=== PATIENT | female | born 1990 | race Caucasian/White ===

== ENCOUNTER 2020-08-02 02:38 | Emergency (ER) | payer SELFPAY ==
[2020-08-02 02:40] VITALS: PULSE 78; RESP 20; TEMP 35.8; O2SAT 96
--- NOTE | 2020-08-02 02:40 | ED.FEMALEGU ---
HPI - Female Genitourinary General Chief complaint: Urogenital-Female Stated complaint: possible uti Time Seen by Provider: 08/02/20 02:40 History of Present Illness HPI Narrative: dysuria and urinary frequency for the past few days. Tried azo with inadequate relief. Overnight tonight it became unbearable. Similar to past UTis, but worse. No fever, flank pain, nausea, vomiting, discharge. Related Data Allergies Allergy/AdvReac Type Severity Reaction Status Date / Time No Known Allergies Allergy Unverified 12/26/13 13:55 Review of Systems Review of Systems: All systems reviewed & are unremarkable except as noted in HPI and below Cardiovascular: Cardiovascular: Denies chest pain Respiratory: Respiratory: Denies dyspnea Gastrointestinal: Gastrointestinal: Denies abdominal pain, Denies nausea and Denies vomiting Genitourinary: Genitourinary: Denies abnormal vaginal bleeding, Denies hematuria, Reports nocturia, Reports dysuria, Denies flank pain, Denies urinary incontinence and Denies vaginal discharge Exam Const: General: healthy appearing, no acute distress and alert Orientation/consciousness: patient oriented x3 HENMT: Head: normal to inspection Resp: Effort & Inspection: normal respiratory effort Auscultation: clear to auscultation bilaterally, no rales, no rhonchi and no wheezes Cardio: Jugular venous distension: no JVD Rate: regular rate Rhythm: regular rhythm Heart sounds: no murmurs GI: Inspection: non-distended GI Palp: Yes Soft to palpation and Yes Tenderness to palpation present (GI) (mild suprapubic) Skin: General skin exam: normal color Neuro: General: patient oriented x3 and moves all extremities Speech: normal speech Gait exam (Neuro): Normal gait present Extrem: General: no edema Psych: Appearance: well kempt Affect: normal affect Course Vital Signs Vital signs: Vital Signs Temperature 35.8 C L 08/02/20 02:40 Pulse Rate 78 08/02/20 02:40 Respiratory Rate 20 08/02/20 02:40 Pulse Oximetry 96 08/02/20 02:40 Temperature 35.8 C L 08/02/20 02:40 Pulse Rate 72 08/02/20 04:54 Respiratory Rate 16 08/02/20 04:54 Pulse Oximetry 99 08/02/20 04:54 MDM - Female Genitourinary MDM Narrative Medical decision making narrative: UA consistent with infection Medical Records Attestation: I reviewed the patient's medical records. Lab Data Attestation: I reviewed the patient's lab results. Labs: Lab Results 08/02/20 Range/Units 02:43 Urine Color Meg (Yellow) Urine Appearance Cloudy H (Clear) Urine pH 6.0 (5.0-9.0) Ur Specific [place] 1.013 (1.001-1.035) Urine Protein 2+ H (Negative) mg/dL Urine Glucose (UA) Negative (Negative) mg/dL Urine Ketones Negative (Negative) mg/dL Ur Blood (Man) 2+ H (Negative) Urine Nitrate Positive H (Negative) Urine Bilirubin Negative (Negative) Urine Urobilinogen 4.0 H (<2.0) mg/dL Leukocyte Esterase Rfl Negative (Negative) [place]/UL Urine RBC >75 H (0-2) /hpf Urine WBC >75 H /hpf Ur Squamous Epith Cells Few (Few) /hpf Urine Bacteria Trace /hpf UCG Bedside Result Negative Reference Range: Negative Discharge Plan Discharge Clinical Impression: Urinary tract infection Patient Disposition: Home, Self-Care Condition: Stable Instructions: Antibiotic Form, Urinary Tract Infection in Women (ED) Prescriptions: New nitrofurantoin monohyd/m-cryst [Macrobid] 100 mg capsule 100 mg PO Q12H 5 Days Qty: 10 RF: 0 Follow-up/Referrals: Vida,Alexander Piedra MD [Primary Care Provider] -
[2020-08-02 03:07] LABS: Add Urine Microscopic? YES; Appearance Urine Cloudy (Clear); Bacteria Urine Trace /hpf; Bilirubin Urine Negative (Negative); Blood Urine 2+ (Negative); Color Urine Amber (Yellow); Glucose Urine UA Negative (Negative); Ketones Urine Negative (Negative); Leukocyte Esterase Ur Negative LEU/UL (Negative); Nitrate Urine Positive (Negative); Protein Urine 2+ mg/dL (Negative); RBC Urine >75 /hpf (0-2); Specific Grav Ur 1.013 (1.001-1.035); Squamous Epithelial Cell Urine Few /hpf (Few); WBC Urine >75 /hpf
[2020-08-02] MEDS: NITROFURANTOIN MONOHYD MACROCR 100 MG CAP PO (03:36)
[2020-08-02 04:54] VITALS: PULSE 72; RESP 16; O2SAT 99
== END 2020-08-02 05:02 | disposition home or self-care (01) ==
PROVIDERS: Emergency Provider Emergency Medicine; PCP Family Medicine
DX: N39.0 Urinary tract infection, site not specified (principal)
CPT/HCPCS: 81001; 81025; 87077; 87086; 87088; 87186; 99283; A9270

== ENCOUNTER 2021-07-16 10:42 | Outpatient (CLI) | payer BC, SELFPAY ==
--- NOTE | ~2021-07-16 | US_ITS ---
EXAMINATION: US OB <=14 wk fetus w TV DATE: 07/16/2021 11:33 INDICATION: Threatened . TECHNIQUE: Real-time transabdominal pelvic ultrasound was performed. COMPARISON: None. FINDINGS: The uterus measures 11.4 x 8.3 x 5.8 cm. There is an intrauterine gestational sac. A yolk sac is iden tified. The crown rump length measures 3.7 cm, which correlates with an estimated gestational age of 10 weeks and 4 day(s) (+/-) 1 week(s) and 0 day(s). heart motion is identified measuring 157 beats per minute (bpm) by M-mode Doppler. There is an 11 mm hypoechoic subchorionic mass. The ri ght ovary measures 1.9 x 1.8 x 1.8 cm. The left ovary measures 2.6 x 2.2 x 1.1 cm. There is no free f luid in the pelvis. IMPRESSION: 1. Single living intrauterine gestation with estimated date of delivery of 02/07/2022. 2. 11 mm hypoechoic subchorionic mass, which may be a small hematoma or fibroid. Reviewed, dictated and finalized at location A. IMPRESSION: 1. Single living intrauterine gestation with estimated date of delivery of 02/07/2022. 2. 11 mm hypoechoic subchorionic mass, which may be a small hematoma or fibroid .
== END 2021-07-16 10:43 | disposition home or self-care (01) ==
LOC: ANHIMG 10:42
PROVIDERS: PCP Family Medicine; Visit Provider Obstetrics & Gynecology
DX: O20.0 Threatened abortion (principal); Z3A.00 Weeks of gestation of pregnancy not specified
CPT/HCPCS: 76801; 76817

== ENCOUNTER 2021-12-31 19:25 | Observation (INO) | payer BC, SELFPAY ==
[2021-12-31 19:55] VITALS: BP 121/69; PULSE 107
[2021-12-31 20:00] VITALS: BP 118/73; PULSE 114
[2021-12-31 20:21] LABS: Appearance Urine Cloudy (Clear); Bilirubin Urine Negative (Negative); Blood Urine Negative (Negative); Glucose Urine UA Negative (Negative); Ketones Urine 2+ mg/dL (Negative); Leukocyte Esterase Ur Negative LEU/UL (Negative); Nitrate Urine Negative (Negative); Protein Urine Trace mg/dL (Negative); Specific Grav Ur >= 1.030 (1.001-1.035); Urobilinogen Urine 0.2 mg/dL (<2.0)
[2021-12-31 20:31] VITALS: BP 127/72; PULSE 99
[2021-12-31 20:32] LABS: Bacteria Urine Trace /hpf; Mucus Urine Rare /lpf; Squamous Epithelial Cell Urine Many /hpf (Few)
[2021-12-31 20:35] LABS: Add Urine Microscopic? YES; Color Urine Light Yellow (Yellow)
[2021-12-31] MEDS: ONDANSETRON HCL ODT 4 MG TABLET PO (21:11)
[2021-12-31] MEDS: CYCLOBENZAPRINE HCL 10 MG TABLET PO (21:11)
--- NOTE | 2021-12-31 23:32 | OBADM ---
This patient, Leanna Camargo, admitted to the OB room OB Post 116 for observation. Patient/family oriented to hospital policies and general routines including ID bracelet, bed and alarms, visiting hours, pain management, procedures, bathroom and other care routines, personal items, smoking policy, room service/diet, and visiting hours. Patient/Family are encouraged to report perceived risks to care and to ask questions if they do not understand what they are told or what they should do.
--- NOTE | 2022-01-09 09:23 | PM.OBTRLD ---
OB - Triage/Final Diagnosis Visit Information Reason for evaluation: threatened labor Comments/Additional reasons for admission: I have assessed the risk for this patient, Leanna Camargo, and determined that she would benefit from observation care. Evaluation Laboratory results: Laboratory Tests 12/31/21 20:02 Urine Color Light yellow Urine Appearance Cloudy H Urine pH 6.0 Ur Specific [place] >= 1.030 Urine Protein Trace Urine Glucose (UA) Negative Urine Ketones 2+ H Ur Blood (Man) Negative Urine Nitrate Negative Urine Bilirubin Negative Urine Urobilinogen 0.2 Leukocyte Esterase Rfl Negative Urine RBC 3-5 H Urine WBC 4-6 H Ur Squamous Epith Cells Many H Urine Bacteria Trace Hyaline Casts 1-2 Urine Mucus Rare
== END 2021-12-31 21:15 | disposition home or self-care (01) ==
PROVIDERS: Admitting Provider Obstetrics & Gynecology; PCP Family Medicine; Visit Provider Obstetrics & Gynecology
DX: O47.03 False labor before 37 completed weeks of gestation, third trimester (principal); Z3A.35 35 weeks gestation of pregnancy
CPT/HCPCS: 81001; A9270; G0378; G0379

== ENCOUNTER 2022-01-13 15:48 | Outpatient (RCR) | payer BC, SELFPAY ==
[2022-01-13 16:50] VITALS: BP 122/73; PULSE 81
== END 2022-01-16 10:48 | disposition home or self-care (01) ==
LOC: ANHOBOP 15:48
PROVIDERS: PCP Family Medicine; Visit Provider Obstetrics & Gynecology
DX: O24.419 Gestational diabetes mellitus in pregnancy, unspecified control (principal); Z3A.36 36 weeks gestation of pregnancy
CPT/HCPCS: 59025

== ENCOUNTER 2022-01-23 10:57 | Outpatient (RCR) | payer BC, SELFPAY ==
[2022-01-09 11:15] VITALS: BP 128/79; PULSE 87
--- NOTE | 2022-01-09 12:18 | PC.NURSE ---
Called Dr. Capone with ultrasound report. September D/C home.
[2022-01-16 11:20] VITALS: BP 129/82; PULSE 91
[2022-01-20 16:55] VITALS: BP 137/76; PULSE 82
--- NOTE | ~2022-01-23 | US_ITS ---
EXAMINATION: US OB BPP wo non-stress DATE: 01/16/2022 11:41 INDICATION: Gestational diabetes during third trimester TECHNIQUE: Real-time pelvic ultrasound was performed. The interpreting radiologist was not present fo r the study. COMPARISON: 01/09/2022 FINDINGS: There is a single living fetus in vertex presentation. The placenta is posterior. heart rate is 138 beats per minute (bpm). Biophysical profile performed by the technologist: breathing (30 sec sustained breathing in 30 minutes): 2 out of 2 movement (3 gross body movements in 30 minutes): 2 out of 2 tone (one episode of zxviteg-fhrcwfhlj-snupjcs limb movement): 2 out of 2 Amniotic fluid pocket (2 cm): 2 out of 2 Total score: 8 out of 8 IMPRESSION: 1. Single living fetus in vertex presentation. 2. Biophysical profile 8 out of 8. Reviewed, dictated and finalized at location B.
--- NOTE | ~2022-01-23 | US_ITS ---
EXAMINATION: US OB follow up w BPP DATE: 01/09/2022 12:05 INDICATION: Gestational diabetes. Third trimester. TECHNIQUE: Real-time pelvic ultrasound was performed. COMPARISON: Ultrasound 09/16/2021, 07/16/2021 FINDINGS: There is a single living fetus in vertex presentation. The placenta is left lateral. The cervical le ngth is normal on transabdominal images. heart rate is 129 beats per minute (bpm). The amniotic fluid index is 14.8 cm, which is normal. The following biometric data were obtained: Biparietal diameter (BPD): 9.2 cm; head circumference (HC): 33.8 cm; abdominal circumference (AC): 33 .2 cm; femur length (FL): 7.3 cm. These measurements are concordant. Estimated weight is 3174 g +/- 476 g, which correlates with the 79th percentile when 02/04/22 is used as estimated date of delivery. As single measurements, these parameters are each equal to the following estimated gestational ages: BPD: 37 weeks 3 days. HC: 38 weeks 6 days. AC: 37 weeks 0 days. FL: 37 weeks 1 days. estimated gestational age based solely on measurements from this exam is 37 weeks 4 days +/- 2 weeks 4 days. Biophysical profile performed by the technologist: breathing (30 sec sustained breathing in 30 minutes): 2 out of 2 movement (3 gross body movements in 30 minutes): 2 out of 2 tone (one episode of jpdnpsk-mnhderrsg-vkhqhgq limb movement): 2 out of 2 Amniotic fluid pocket (2 cm): 2 out of 2 Total score: 8 out of 8 IMPRESSION: 1. Single living fetus in vertex presentation. 2. Estimated weight is 3174 g +/- 476 g, which correlates with the 79th percentile when 2 is used as estimated date of delivery. Note that estimated date of delivery based on the ultrasound on 07/16/2021 would be 02/07/2022. 3. Biophysical profile 8 out of 8. Reviewed, dictated and finalized at location A. IMPRESSION: 1. Single living fetus in vertex presentation. 2. Estimated weight is 3174 g +/- 476 g, which correlates with the 79th percentile when 02/04/22 is used as estimated date of delivery. Note that estima trent date of delivery based on the ultrasound on 07/16/2021 would be 02/07/2022. 3. Biophysical profile 8 out of 8.
--- NOTE | ~2022-01-23 | US_ITS ---
EXAMINATION: US OB BPP wo non-stress DATE: 01/23/2022 11:55 INDICATION: Gestational diabetes, third trimester TECHNIQUE: Real-time pelvic ultrasound was performed. The interpreting radiologist was not present fo r the study. COMPARISON: 01/16/2022 FINDINGS: There is a single living fetus in vertex presentation. The placenta is posterior. heart rate is 140 beats per minute (bpm). The amniotic fluid index is 13.9 cm which is normal. Biophysical profile performed by the technologist: breathing (30 sec sustained breathing in 30 minutes): 2 out of 2 movement (3 gross body movements in 30 minutes): 2 out of 2 tone (one episode of tmmhong-ebohqwhdq-pizptjy limb movement): 2 out of 2 Amniotic fluid pocket (2 cm): 2 out of 2 Total score: 8 out of 8 IMPRESSION: 1. Single living fetus in vertex presentation. 2. Biophysical profile 8 out of 8. Reviewed, dictated and finalized at location A.
[2022-01-23 12:11] VITALS: BP 122/71; PULSE 94
== END 2022-04-09 23:59 | disposition home or self-care (01) ==
LOC: ANHOBOP 10:57
PROVIDERS: PCP Family Medicine; Visit Provider Obstetrics & Gynecology
DX: O24.419 Gestational diabetes mellitus in pregnancy, unspecified control (principal); Z3A.36 36 weeks gestation of pregnancy; Z3A.37 37 weeks gestation of pregnancy
CPT/HCPCS: 59025; 76816; 76819

== ENCOUNTER 2022-01-28 06:07 | Inpatient (IN) | payer BC, SELFPAY ==
[2022-01-28] VITALS (105 sets, daily range): BP systolic 72–160; BP diastolic 38–118; PULSE 58–98; RESP 16; TEMP 36.1–36.8; O2SAT 96–100; BMI 30.4
[2022-01-28 07:06] LABS: Glucose Point of Care 133 mg/dl (65-105)
[2022-01-28 07:10] LABS: Basophils Percent Auto 0.5 % (0.2-1.2); Eosinophils Absolute Auto 0.1 K/mm3 (0-0.3); Eosinophils Percent Auto 0.6 % (0-4.4); Hematocrit 28.7 % (37.0-47.0); Hemoglobin 9.4 g/dL (12.0-15.0); Immature Granulocyte Absolute 0.04 K/mm3 (0.00-0.031); Immature Granulocyte Percent A 0.5 % (0-0.5); Lymphocytes Absolute Auto 2.47 K/mm3 (0.9-3.2); Mean Corpuscular HGB Conc 32.8 g/dl (32-36); Mean Corpuscular Hemoglobin 28.6 pg (26-34); Mean Corpuscular Volume 87.2 fl (80-100); Mean Platelet Volume 9.4 fl (7.4-10.4); Monocytes Absolute Auto 0.4 K/mm3 (0.1-0.6); Monocytes Percent Auto 5.7 % (2.6-8.5); Neutrophils Absolute Auto 4.7 K/mm3 (1.3-6.7); Neutrophils Percent Auto 60.7 % (45.5-73.1); Platelet Count Result 496 k/mm3 (150-375); Red Blood Count 3.29 M/mm3 (4.2-5.4); Red Cell Distribution Width 15.4 % (11.5-14.5); White Blood Count 7.7 K/mm3 (4.5-10.0)
--- NOTE | 2022-01-28 07:12 | PM.IMHP ---
H&P: HPI History of Present Illness Date/Time: 01/28/22 07:12 Chief Complaint: induction of labor Narrative: Leanna is a 31yo @ 39.0wks who presents for IOL due to uncontrolled GDM. She has been undergoing ANT but rarely checked her sugars and refused insulin and MFM. Her BG this morning was 133. She reports good movements. Irregular ctx. No VB or LOF. Her is complicated by: - H/o PEC x2; on ASA - H/o PP anxiety/depression -- on zoloft 25 - A2GDM-- started on insulin 8U BID (not taking, refused to see MFM) - COVID infection @ 35wks - Anemia Review of Systems Review of Systems: All systems reviewed & are unremarkable except as noted in HPI and below PMFSH Past Medical History Medical History Abnormal glucose tolerance in Iron deficiency Surgical History Surgical History History of colposcopy History of dilation and curettage (~2012) missed AB Family History Family History Grandparent Heart disease Diabetes mellitus Social History Social History Smoking status: Never smoker Alcohol intake: never Substance use: current Substance use type: marijuana Last use: last time 4 weeks ago Gender identity (if verbalized by the patient): Female Spiritual care concerns: No Meds Home Medications and Allergies Home Medications Medication Instructions Recorded Confirmed Type vitamin no.115-iron 29 1 tablet PO DAILY #90 tabs 06/24/21 07/23/21 Rx mg-folic acid 1 mg chewable tablet ( 19) sertraline 25 mg tablet (Zoloft) 25 mg PO DAILY #90 tabs 12/03/21 12/03/21 Rx Allergies Allergy/AdvReac Type Severity Reaction Status Date / Time No Known Allergies Allergy Verified 01/13/22 15:32 Exam Const: General: cooperative, comfortable and no acute distress Resp: Effort & Inspection: normal respiratory effort Cardio: Rate: regular rate GI: Inspection: normal to inspection GI Palp: No abdominal tenderness and Yes Soft to palpation : Other: FHT's: 140's/ mod nicole/ + accels/ no decels - cat 1 TOCO: irregular ctx's Cervix: 2.5/20/-4 Membranes: intact, GBS neg Presentation: cephalic Skin: General skin exam: normal color Neuro: General: patient oriented x3 Extrem: General: normal to inspection Psych: Appearance: grossly normal Affect: normal affect Assessment and Plan Assessment and plan (1) Gestational diabetes mellitus (GDM) affecting third : Code(s): O24.419 - Gestational diabetes mellitus in , unspecified control Status: Acute (2) Anemia affecting in third trimester: Code(s): O99.013 - Anemia complicating , third trimester Status: Acute Plan - Admit to L&D for IOL - Pitocin per protocol - Will AROM when fetus is at a lower station - BS checks q2h when elevated - Continuous monitoring; currently reassuring - Anesthesia consult PRN pain
[2022-01-28] MEDS: OXYTOCIN 30 UNITS/NS 500 ML 30 UNITS/500 ML BAG IV CONT (07:22)
[2022-01-28] MEDS: LACTATED RINGERS 1,000 ML 125 ML IV CONT ×2 (07:22→13:32)
--- NOTE | 2022-01-28 07:23 | WPDHPUPDATE1 ---
History and Physical Update Update Date/Time: 01/28/22 07:23 History and Physical has been reviewed, including an updated exam of the patient. There are NO changes in the patient's condition. Risks, benefits, and alternatives have been discussed and questions answered. Patient agrees to proceed with procedure.
[2022-01-28 08:25] LABS: Rubella IgG Antibody 17.4 IU/ML
--- NOTE | 2022-01-28 09:20 | LDADM ---
This patient, Leanna Camargo, was admitted to Labor/Delivery/Recovery 102 on 01/28/22 at 06:07. Plans for labor, pain management and were discussed with patient. Patient/family oriented to hospital policies and general routines including ID bracelet, bed and alarms, visiting hours, pain management, procedures, bathroom and other care routines, personal items, smoking policy, room service/diet and guest tray routines, security routines, and visiting hours. Patient/Family are encouraged to report perceived risks to care and to ask questions if they do not understand what they are told or what they should do. See OBIX for further documentation.
[2022-01-28 09:59] LABS: Glucose Point of Care 94 mg/dl (65-105)
[2022-01-28 11:36] LABS: Glucose Point of Care 74 mg/dl (65-105)
--- NOTE | 2022-01-28 12:08 | PM.OBPNLAB ---
Pain Control Date/time seen: 01/28/22 12:08 Pain control: tolerating well Pelvic Exam Dilation (cm): 3 Effacement (%): 50 station: -3 Amniotic membrane status: Ruptured (copious clear; AROM 1205) Contractions Monitor mode: Internal Contraction frequency: 2 Status status: Category l Assessment and Plan Pitocin rate (mU/min): 12 Assessment: induction ongoing Plan: continuous present management
--- NOTE | 2022-01-28 13:19 | WPDANESEPP ---
Anes - Eval Pre Procedure Procedure: labor epidural Date/Time: 01/28/22 13:19 Pre Op Diagnosis: iol Patient Data Age: 31 Gender: F Height: 1.65 m Weight: 83 kg Last Vital Signs Temp 36.3 C L 01/28/22 09:20 Pulse 75 01/28/22 13:15 BP 140/88 01/28/22 13:15 O2 Del Method Room Air 01/28/22 07:45 Allergies Allergy/AdvReac Type Severity Reaction Status Date / Time No Known Allergies Allergy Verified 01/13/22 15:32 Home Medications Medication Instructions Recorded Confirmed Type vitamin no.115-iron 29 1 tablet PO DAILY #90 tabs 06/24/21 01/28/22 Rx mg-folic acid 1 mg chewable tablet ( 19) sertraline 25 mg tablet (Zoloft) 25 mg PO DAILY #90 tabs 12/03/21 01/28/22 Rx Laboratory Tests 01/28/22 01/28/22 01/28/22 06:36 06:36 06:36 WBC 7.7 K/mm3 K/mm3 (4.5-10.0) RBC 3.29 M/mm3 L M/mm3 (4.2-5.4) Hgb 9.4 g/dL L g/dL (12.0-15.0) Hct 28.7 % L % (37.0-47.0) MCV 87.2 fl fl (80-100) MCH 28.6 pg pg (26-34) MCHC 32.8 g/dl g/dl (32-36) RDW 15.4 % H % (11.5-14.5) Plt Count 496 k/mm3 H k/mm3 (150-375) MPV 9.4 fl fl (7.4-10.4) Immature Gran % (Auto) 0.5 % % (0-0.5) Neut % (Auto) 60.7 % % (45.5-73.1) Lymph % (Auto) 32.0 % % (18.3-44.2) [place] % (Auto) 5.7 % % (2.6-8.5) Eos % (Auto) 0.6 % % (0-4.4) Baso % (Auto) 0.5 % % (0.2-1.2) Lymph # (Auto) 2.47 K/mm3 K/mm3 (0.9-3.2) [place] # (Auto) 0.4 K/mm3 K/mm3 (0.1-0.6) Eos # (Auto) 0.1 K/mm3 K/mm3 (0-0.3) Baso # (Auto) 0.0 K/mm3 K/mm3 (0.0-0.1) Abs Immat Gran (auto) 0.04 K/mm3 H K/mm3 (0.00-0.031) Absolute Neuts (auto) 4.7 K/mm3 K/mm3 (1.3-6.7) Absolute Nucleated RBC 0.0 K/mm3 K/mm3 (0.0-0.012) Nucleated RBC % 0.0 % % (0.0-0.2) POC Capillary Glucose RPR Pending Rubella IgG Antibody 17.4 IU/ML IU/ML (10 - ) Blood Type Antibody Screen 01/28/22 01/28/22 01/28/22 06:36 07:01 09:39 WBC RBC Hgb Hct MCV MCH MCHC RDW Plt Count MPV Immature Gran % (Auto) Neut % (Auto) Lymph % (Auto) [place] % (Auto) Eos % (Auto) Baso % (Auto) Lymph # (Auto) [place] # (Auto) Eos # (Auto) Baso # (Auto) Abs Immat Gran (auto) Absolute Neuts (auto) Absolute Nucleated RBC Nucleated RBC % POC Capillary Glucose 133 mg/dl H mg/dl 94 mg/dl mg/dl (65-105) (65-105) RPR Rubella IgG Antibody Blood Type O Positive Antibody Screen Negative 01/28/22 11:31 WBC RBC Hgb Hct MCV MCH MCHC RDW Plt Count MPV Immature Gran % (Auto) Neut % (Auto) Lymph % (Auto) [place] % (Auto) Eos % (Auto) Baso % (Auto) Lymph # (Auto) [place] # (Auto) Eos # (Auto) Baso # (Auto) Abs Immat Gran (auto) Absolute Neuts (auto) Absolute Nucleated RBC Nucleated RBC % POC Capillary Glucose 74 mg/dl mg/dl (65-105) RPR Rubella IgG Antibody Blood Type Antibody Screen Patient hx anesthesia problems: none Family hx anesthesia problems: none Results Review: All pre-operative results and documents have been reviewed as part of the pre-operative evaluation. [facility] Past Medical History Medical History Abnormal glucose tolerance in Iron deficiency Surgical History Surgica
[2022-01-28 15:50] LABS: Glucose Point of Care 99 mg/dl (65-105)
--- NOTE | 2022-01-28 17:14 | PM.OBPRVD ---
OB - Delivery Note Procedure Delivery date: 01/28/22 Events: Gestational Diabetes Induction method: Per Pitocin Protocol Delivery augmentation: Rupture of Membranes Delivery monitor: External FHT and Internal Uterine Route of delivery: Laceration Description: None Specimen: Yes (placenta) Quantitative Blood Loss (ml): 400 Anesthesia type: Epidural Disposition: Floor Baby Date of : 01/28/22 Time of : 16:58 Weeks of gestation at delivery: 39 gender: Male Weight (pounds): 7 Weight (ounces): 15 presentation: vertex position: Left Occiput Anterior Placenta delivery description: Expressed Cord Vessel Description: 3 Vessels, Clamped/Cut and Delayed Cord Clamping score one minute: 8 score five minutes: 9 Narrative: Leanna rapidly progressed from 3 to 8 to complete. She pushed with good maternal effort during one contraction and delivered the head over intact perineum. She easily delivered the infant's shoulders and body without complications. The was immediately placed skin to skin and had spontaneous cry. Delayed cord clamping was performed. The umbilical cord was then clamped and cut. A segment of the cord was collected for cord gases. The remaining cord blood was collected for typing. With Pitocin running and gentle downward traction on the cord, the placenta delivered without complications. Brisk bleeding was noted and bimanual massage was performed. The uterus was found to be firm with minimal bleeding. Patient was examined and no lacerations were noted. Sponge, lap, instrument, and needle counts were correct at the end of the procedure. Mom and baby were left bonding in the birthing suite in stable condition. [facility] Delivery Billing Delivery Delivery: Delivery Charge
[2022-01-28] MEDS: BENZOCAINE 20% AER SPR (*SP) 56 GM CAN 1 SPRAY TOPICAL (19:31)
[2022-01-28] MEDS: WITCH HAZEL 40 PADS 1 PAD TOPICAL (19:31)
--- NOTE | 2022-01-28 19:50 | OBPPTRN ---
Patient transferred to post room #278 via w/c. Support person, Katie, present. Oriented to unit, room, information board, rooming in, admission packet and security measures. Patient verbalizes understanding.
[2022-01-28] MEDS: DOCUSATE SODIUM 100 MG CAPSULE PO (20:13)
[2022-01-28] MEDS: ACETAMINOPHEN 325 MG TABLET 650 MG PO (20:13)
[2022-01-28] MEDS: IBUPROFEN 600 MG TABLET PO (22:45)
[2022-01-29] VITALS (10 sets, daily range): BP systolic 108–150; BP diastolic 70–90; PULSE 76–98; RESP 16–18; TEMP 36.4–36.7; O2SAT 98–100
[2022-01-29] MEDS: ACETAMINOPHEN 325 MG TABLET 650 MG PO ×4 (02:59→23:19)
--- NOTE | 2022-01-29 07:00 | PC.NURSE ---
PT introductions made and plan of care discussed per post , pain management, bottle feeding, daily care activities. PT and spouse both recipients of such instructions and no barriers to learning identified at this time. PT received instructions per one to one discussion, mom baby care guide and demonstrations this shift. PT verbalized understanding of such care.
--- NOTE | 2022-01-29 08:33 | WPDANLDPN2 ---
Anes-Prog Note L&D Date/Time: 01/29/22 08:33 Comfortable throughout: labor and delivery Neuraxial method: epidural Epidural/Spinal procedure site: clean & non-tender Neuro status: Neuro function grossly intact. Cardiovascular status: normal Respiratory status: normal Airway patency: baseline Mental status: baseline Post-Op hydration status: normal Vital Signs: Last Vital Signs Temp 98.1 F 01/29/22 05:30 Pulse 78 01/29/22 05:30 Resp 16 01/29/22 05:30 BP 108/70 01/29/22 05:30 Pulse Ox 100 01/29/22 05:30 O2 Del Method Room Air 01/28/22 20:00 Pain score (VAS): 0 I/O: Intake & Output 01/28/22 01/29/22 01/29/22 23:59 07:59 15:59 Intake Total 1800 Output Total 178 Balance 1622 Post-procedural complaints: none Patient feedback: Patient satisfied with anesthetic care.
--- NOTE | 2022-01-29 08:43 | P.PNOB_ITS ---
OB - PN: Subj Subjective Date/time seen: 01/29/22 08:43 Narrative: PPD#1 Leanna reports doing well today. 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 Her pain is controlled. She is tolerating regular diet, voiding, passing gas, and ambulating without issues. She is bottle feeding. She would like her son circumcised. OB - PN: Obj Data Labs CBC & Chem 7: 01/29/22 10:15 01/29/22 10:15 Labs: Laboratory Results - last 24 hr 01/28/22 01/28/22 01/28/22 09:39 11:31 15:40 Hgb Hct POC Capillary Glucose 94 74 99 01/29/22 03:55 Hgb 8.0 L Hct 25.0 L POC Capillary Glucose OB - PN A/P Assessment and Plan (1) Normal vaginal delivery of third : Code(s): O80 - Encounter for full-term uncomplicated delivery Status: Acute (2) Gestational hypertension: Code(s): O13.9 - Gestational [-induced] hypertension without significant proteinuria, unspecified trimester Status: Acute Plan day: 1 Plan: routine care Comments: - labs ordered - will monitor BPs tonight/tomorrow (has a h/o PP PEC in the past) Time Spent With Patient Time: Total time spent is greater than 50% in coordination of care (as documented) at patient's floor/unit and/or counseling patient: Review of Systems Constitutional: Constitutional: Denies chills, Denies fever(s) and Denies headache(s) Eyes: Eyes: Denies change in vision ENT: Denies dizziness and Denies headache(s) Cardiovascular: Cardiovascular: Denies chest pain, Denies palpitations and Denies dyspnea Respiratory: Respiratory: Denies cough and Denies dyspnea Gastrointestinal: Gastrointestinal: Denies nausea and Denies vomiting Neurologic: Denies dizziness and Denies headache(s) Endocrine: Endocrine: Denies palpitations Exam Const: General: cooperative, comfortable and no acute distress Orientation/consciousness: patient oriented x3 Resp: Effort & Inspection: normal respiratory effort Auscultation: clear to auscultation bilaterally Cardio: Rate: regular rate GI: Inspection: non-distended GI Palp: No abdominal tenderness and Yes Soft to palpation Auscultation: normal bowel sounds : Other: fundus firm Skin: General skin exam: normal color Neuro: General: patient oriented x3 Extrem: General: normal to inspection Psych: Appearance: grossly normal Affect: normal affect Attitude: cooperative
[2022-01-29] MEDS: IBUPROFEN 600 MG TABLET PO ×3 (10:02→23:19)
[2022-01-29] MEDS: DOCUSATE SODIUM 100 MG CAPSULE PO ×2 (10:03→17:38)
[2022-01-29] MEDS: POLYSACCHARIDE IRON COMPLEX 150 MG CAPSULE PO ×2 (10:03→17:38)
[2022-01-29] MEDS: SERTRALINE HCL 25 MG TABLET PO ×2 (10:08→13:41)
[2022-01-29] MEDS: MULTIVIT/MIN/PREN/FOL AC/IRON TABLET 1 TAB PO (10:08)
[2022-01-29 10:32] LABS: Mean Platelet Volume 8.8 fl (7.4-10.4); Platelet Count Result 384 k/mm3 (150-375)
[2022-01-29 10:39] LABS: Alanine Aminotransferase 35 U/L (6-35); Albumin Level 3.1 g/dL (3.5-5.1); Alkaline Phosphatase 160 U/L (38-126); Anion Gap 8 mmol/L (8-16); Aspartate Amino Transferase 42 U/L (14-36); Bilirubin,Total 0.2 mg/dL (0.2-1.3); Blood Urea Nitrogen 14 mg/dL (7-17); Calcium 8.1 mg/dL (8.4-10.2); Carbon Dioxide 20 mmol/L (22-30); Chloride 105 mmol/L (98-107); Estimated CRCL calculation 122 ml/min; Estimated Glomerular Filt Rate > 60; Glucose 131 mg/dL (65-110); Lactate Dehydrogenase 195 U/L (120-246); Potassium 3.9 mmol/L (3.4-5.0); Sodium 133 mmol/L (137-145); Uric Acid 4.5 mg/dL (2.5-7.5)
[2022-01-29] MEDS: TETANUS,DIPHTHERIA,AC PERTUSSIS ADULT (0.5 ML) BOOSTRIX IM (10:51)
[2022-01-29] MEDS: LABETALOL HCL 100 MG TABLET 200 MG PO ×2 (13:40→21:06)
[2022-01-29 15:36] LABS: Rapid Plasma Reagin Non-Reactive (NonReactive)
[2022-01-30 04:30] VITALS: BP 136/87
--- NOTE | 2022-01-30 07:00 | P.PNOB_ITS ---
OB - PN: Subj Subjective Date/time seen: 01/30/22 07:00 Narrative: PPD#2 Leanna reports doing well today. 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 Her pain is controlled. She is tolerating regular diet, voiding, passing gas, and ambulating without issues. She is bottle feeding. She was started on labetalol and her BPs have been better controlled; no s/sx of PEC. OB - PN: Obj Data Labs CBC & Chem 7: 01/29/22 10:15 01/29/22 10:15 Labs: Laboratory Results - last 24 hr 01/28/22 01/29/22 01/29/22 06:36 10:15 10:15 Plt Count 384 H MPV 8.8 Sodium 133 L Potassium 3.9 Chloride 105 Carbon Dioxide 20 L Anion Gap 8 BUN 14 Creatinine 0.60 L Estim Creat Clear Calc 122 Estimated GFR > 60 Glucose 131 H Uric Acid 4.5 Calcium 8.1 L Total Bilirubin 0.2 AST 42 H ALT 35 Alkaline Phosphatase 160 H Lactate Dehydrogenase 195 Total Protein 6.0 L Albumin 3.1 L RPR Non-reactive OB - PN A/P Plan day: 1 Plan: routine care and discharge home Comments: - Pelvic rest; take meds as prescribed - ER return precautions: fever, n/v/abd pain, bleeding, HTN Time Spent With Patient Time: Total time spent is greater than 50% in coordination of care (as documented) at patient's floor/unit and/or counseling patient: Review of Systems Constitutional: Constitutional: Denies chills, Denies fever(s) and Denies headache(s) Eyes: Eyes: Denies change in vision ENT: Denies dizziness and Denies headache(s) Cardiovascular: Cardiovascular: Denies chest pain, Denies palpitations and Denies dyspnea Respiratory: Respiratory: Denies cough and Denies dyspnea Gastrointestinal: Gastrointestinal: Denies nausea and Denies vomiting Neurologic: Denies dizziness and Denies headache(s) Endocrine: Endocrine: Denies palpitations Exam Const: General: cooperative, comfortable and no acute distress Orientatio n/consciousness: patient oriented x3 Resp: Effort & Inspection: normal respiratory effort Auscultation: clear to auscultation bilaterally Cardio: Rate: regular rate GI: Inspection: non-distended GI Palp: No abdominal tenderness and Yes Soft to palpation Auscultation: normal bowel sounds : Other: fundus firm Skin: General skin exam: normal color Neuro: General: patient oriented x3 Extrem: General: normal to inspection Psych: Appearance: grossly normal Affect: normal affect Attitude: cooperative
--- NOTE | 2022-01-30 07:00 | PC.NURSE ---
PT introductions made and plan of care discussed per post , pain management, bottle feeding, daily care activities and pending discharge. PT and her mother both recipients of such instructions and no barriers to learning identified at this time. PT received instructions per one to one discussion, mom baby care guide and demonstrations this shift. PT verbalized understanding of such care.
[2022-01-30 07:35] VITALS: BP 135/92; PULSE 76; RESP 18; TEMP 36.4; O2SAT 100
[2022-01-30] MEDS: MULTIVIT/MIN/PREN/FOL AC/IRON TABLET 1 TAB PO (07:48)
[2022-01-30] MEDS: IBUPROFEN 600 MG TABLET PO (07:49)
[2022-01-30] MEDS: ACETAMINOPHEN 325 MG TABLET 650 MG PO (07:50)
[2022-01-30 07:51] VITALS: PULSE 82
[2022-01-30] MEDS: LABETALOL HCL 100 MG TABLET 200 MG PO (07:51)
[2022-01-30] MEDS: DOCUSATE SODIUM 100 MG CAPSULE PO (07:51)
[2022-01-30] MEDS: POLYSACCHARIDE IRON COMPLEX 150 MG CAPSULE PO (07:51)
[2022-01-30 11:50] VITALS: BP 121/70; PULSE 80; RESP 18; TEMP 36.7; O2SAT 100
--- NOTE | 2022-01-30 13:00 | PC.NURSE ---
PT received discharge instructions per protocol and verbalized understanding of such care.
--- NOTE | 2022-01-30 13:20 | PC.NURSE ---
PT discharged to home ambulatory accompanied mother and infant and taken to waiting car. Follow up appt confirmed
[2022-01-31 10:56] VITALS: BP 136/88; PULSE 73; RESP 20; TEMP 37.1; O2SAT 100
--- NOTE | 2022-02-02 19:39 | PM.OBDSVD ---
DS: Admitting Diagnosis Discharge Date 01/30/22 Admitting Diagnosis induction of labor [id number] DS: Discharge Diagnosis Discharge Diagnosis (1) Normal vaginal delivery of third : Code(s): O80 - Encounter for full-term uncomplicated delivery Status: Acute (2) Gestational hypertension: Code(s): O13.9 - Gestational [-induced] hypertension without significant proteinuria, unspecified trimester Status: Acute (3) Anemia affecting in third trimester: Code(s): O99.013 - Anemia complicating , third trimester Status: Acute OB - DS: Summary OB Procedures : NST and Ultrasound OB Procedures Intrapartum: Spontaneous Vag Delivery OB Procedures: : None Peripartum Data Infant Delivery Method: Natural Vaginal Laceration Description: None complications: none 1: Gender: Male Disposition of : home Status at Discharge Functional status at discharge: independent ambulation Overall status at discharge: patient is back to baseline Time Spent with Patient Time attestation: Total time spent providing and/or coordinating discharge services: Time spent: Less than 30 minutes Exam Const: General: cooperative, comfortable and no acute distress Nutritional Appearance: obese Orientation/consciousness: patient oriented x3 Resp: Effort & Inspection: normal respiratory effort Auscultation: clear to auscultation bilaterally Cardio: Rate: regular rate GI: Inspection: non-distended GI Palp: No abdominal tenderness and Yes Soft to palpation Auscultation: normal bowel sounds : Other: fundus firm Skin: General skin exam: normal color Neuro: General: patient oriented x3 Extrem: General: normal to inspection Psych: Appearance: grossly normal Affect: normal affect Attitude: cooperative DS: Data Data Completed and Pending Completed studies during hospitalization: Pending at discharge 01/28/22 17:54 Surgical [PTH] Routine Discharge Plan Discharge Attending physician on discharge: Veronica Capone Consulting providers: Coral Savage ; Sana Batista Discharging Clinician: Veronica Capone Anticipated Discharge Date/Time: 01/30/22 14:00 Patient Disposition: Home, Self-Care Activity: may shower and pelvic rest Diet: regular Discharge Instructions: Education: Mom and Baby Guide Given to: Mother Follow-Up: Call your delivering provider's office for an appointment to be seen in: 1 and 4 Weeks Mom and baby should come to the [facility] for the follow-up appointment. Appointment Date/Time: January 31, 2022 at 11:00 am What to expect at your follow-up visit: Blood Pressure Check Call [phone] if you are unable to keep your appointment time. BREAST CARE: * Wear a snug supportive bra. * For engorgement discomfort: Bottle Feeding: * May apply ice packs PERINEAL CARE: * Until bleeding stops, use your tamela bottle after urinating * Change your pad frequently throughout the day * You may take sitz baths several times a day (fill your bathtub with warm water and soak for 20 minutes.) Do NOT bathe in the water * No tub baths until seen by your physician - You may shower ACTIVITY: * Rest as much as possible. * Do not exercise or lift anything heavier than your baby (such as laundry or other children.) * Avoid stairs or driving as much as possible. * Do not put anything into the vagina. No douching, tampons, or sexual activity until seen by physician. NOTIFY PHYSICIAN IF YOU HAVE ANY QUESTIONS OR IF ANY OF THE FOLLOWING SYMPTOMS OCCUR: * If your perineum becomes red, swollen, or more painful than what you have experienced in the hospital. * If your vaginal bleeding becomes foul smelling. * If your vaginal bleeding becomes more heavy than a period or if your bleeding changes from pink to bright red. However, you may pass
== END 2022-01-30 13:20 | disposition home or self-care (01) | DRG 807 ==
LOC: ANHLDR 06:11 → ANHOB2 19:58
PROVIDERS: Admitting Provider Obstetrics & Gynecology; PCP Family Medicine; Visit Provider Obstetrics & Gynecology
DX: O24.424 Gestational diabetes mellitus in childbirth, insulin controlled (principal); Z37.0 Single live birth; O76 Abnormality in fetal heart rate and rhythm complicating labor and delivery; O13.4 Gestational [pregnancy-induced] hypertension without significant proteinuria, complicating childbirth; O99.02 Anemia complicating childbirth; Z3A.39 39 weeks gestation of pregnancy; Z86.16 Personal history of COVID-19; Z91.14 Patient's other noncompliance with medication regimen; D50.9 Iron deficiency anemia, unspecified; Z86.59 Personal history of other mental and behavioral disorders
CPT/HCPCS: 36415; 80053; 82948; 83615; 84550; 85014; 85018; 85025; 85049; 86592; 86762; 86850; 86900; 86901; 88307; 90715; A9270; J2590; J2795; J7120